=== PATIENT | female | born 1995 | race Caucasian/White ===

== ENCOUNTER 2018-09-14 13:27 | Emergency (ER) | payer OTHER ==
[~2018-09-14] VITALS: Ht 157.5 cm; Wt 68.5 kg
[2018-09-14] MEDS ORDERED: OBSTETRIX DHA1 EACH (13:46)
== END 2018-09-14 17:42 | disposition home or self-care (01) ==
LOC: ER 13:27
DX: O26.891 Other specified pregnancy related conditions, first trimester (principal); R10.2 Pelvic and perineal pain; Z34.01 Encounter for supervision of normal first pregnancy, first trimester

== ENCOUNTER 2018-10-06 13:51 | Emergency (ER) | payer OTHER ==
[~2018-10-06] VITALS: Ht 157.5 cm; Wt 61.2 kg
[~2018-10-06 13:51] MED LIST: OBSTETRIX DHA1 EACH
== END 2018-10-06 20:55 | disposition home or self-care (01) ==
LOC: ER 13:51
DX: O26.892 Other specified pregnancy related conditions, second trimester (principal); R10.2 Pelvic and perineal pain; R30.0 Dysuria; Z34.02 Encounter for supervision of normal first pregnancy, second trimester

== ENCOUNTER 2019-01-20 17:56 | Outpatient (CLI) | payer OTHER | END 2019-01-21 20:37 | disposition home or self-care (01) | LOC: OBS/DEL 17:56 | DX: O98.313 Other infections with a predominantly sexual mode of transmission complicating pregnancy, third trimester (principal); A59.8 Trichomoniasis of other sites; O23.43 Unspecified infection of urinary tract in pregnancy, third trimester; O35.8XX0 Maternal care for other (suspected) fetal abnormality and damage, not applicable or unspecified; O60.03 Preterm labor without delivery, third trimester; Z34.03 Encounter for supervision of normal first pregnancy, third trimester ==

== ENCOUNTER → 2019-01-20 | Emergency (ER) | payer OTHER | END | disposition left against medical advice (07) | LOC: ER 15:59 | DX: Z53.20 Procedure and treatment not carried out because of patient's decision for unspecified reasons (principal) ==

== ENCOUNTER 2019-02-13 13:51 | Outpatient (CLI) | payer OTHER | END 2019-02-14 15:24 | disposition home or self-care (01) | LOC: OBS/DEL 13:51 | DX: O60.03 Preterm labor without delivery, third trimester (principal) ==

== ENCOUNTER 2019-02-16 01:09 | Outpatient (CLI) | payer OTHER | END 2019-02-16 18:48 | disposition home or self-care (01) | LOC: OBS/DEL 01:09 | DX: O26.893 Other specified pregnancy related conditions, third trimester (principal); R10.2 Pelvic and perineal pain; O60.03 Preterm labor without delivery, third trimester ==

== ENCOUNTER 2019-02-18 14:55 | Outpatient (CLI) | payer OTHER | END 2019-02-18 19:54 | disposition home or self-care (01) | LOC: NST 14:55 | DX: O36.8133 Decreased fetal movements, third trimester, fetus 3 (principal); Z34.03 Encounter for supervision of normal first pregnancy, third trimester; Z3A.37 37 weeks gestation of pregnancy ==

== ENCOUNTER 2019-03-01 16:44 | Inpatient (IN) | payer OTHER ==
[~2019-03-01] VITALS: Ht 157.5 cm; Wt 2.7 kg
== END 2019-03-05 13:45 | disposition home or self-care (01) | DRG 788 ==
LOC: OBS/DEL 16:44 → OB/GYN 19:54 → LDR 19:54 → OBS/DEL 19:54 → LDR 03-02 15:22 → OB/GYN 03-02 16:02
PROVIDERS: ADMIT Obstetrics & Gynecology
PROC: 4A1HXCZ Monitoring of Products of Conception, Cardiac Rate, External Approach (ICD-10-PCS; 2019-03-01)
PROC: 10D00Z1 Extraction of Products of Conception, Low, Open Approach (ICD-10-PCS; principal; 2019-03-02 14:00)
DX: O82 Encounter for cesarean delivery without indication (principal); O14.14 Severe pre-eclampsia complicating childbirth; Z3A.38 38 weeks gestation of pregnancy; Z37.0 Single live birth

== ENCOUNTER 2021-04-05 22:36 | Emergency (ER) | payer OTHER ==
[~2021-04-05] VITALS: Ht 134.6 cm; Wt 68.9 kg
[2021-04-06] MEDS ORDERED: AZITHROMYCIN500 MG PO (03:28)
[2021-04-06] MEDS ORDERED: NAPROXEN375 MG PO (03:28)
[2021-04-07] MEDS ORDERED: AZITHROMYCIN500 MG PO (05:16)
[2021-04-07] MEDS ORDERED: NAPROXEN500 MG PO (05:16)
== END 2021-04-06 04:09 | disposition home or self-care (01) ==
LOC: ER 22:36
DX: J02.9 Acute pharyngitis, unspecified (principal); Z03.818 Encounter for observation for suspected exposure to other biological agents ruled out; J06.9 Acute upper respiratory infection, unspecified

== ENCOUNTER 2021-04-07 03:05 | Emergency (ER) | payer OTHER ==
[~2021-04-07] VITALS: Ht 152.4 cm; Wt 68.9 kg
[~2021-04-07 03:05] MED LIST changes: +AZITHROMYCIN500 MG PO; +NAPROXEN375 MG PO
[2021-04-07] MEDS ORDERED: AZITHROMYCIN500 MG PO (05:16)
[2021-04-07] MEDS ORDERED: NAPROXEN500 MG PO (05:16)
== END 2021-04-07 04:42 | disposition home or self-care (01) ==
LOC: ER 03:05
DX: J02.9 Acute pharyngitis, unspecified (principal)

== ENCOUNTER 2021-12-05 09:45 | Emergency (ER) | payer OTHER ==
[~2021-12-05] VITALS: Ht 157.5 cm; Wt 69.9 kg
[~2021-12-05 09:45] MED LIST changes: +NAPROXEN500 MG PO
== END 2021-12-05 11:03 | disposition home or self-care (01) ==
LOC: ER 09:45
DX: H10.10 Acute atopic conjunctivitis, unspecified eye (principal)

== ENCOUNTER 2022-09-12 23:29 | Emergency (ER) | payer OTHER ==
[~2022-09-12] VITALS: Ht 154.9 cm; Wt 64.4 kg
== END 2022-09-13 00:42 | disposition home or self-care (01) ==
LOC: ER 23:29
DX: S00.03XA Contusion of scalp, initial encounter (principal); W18.39XA Other fall on same level, initial encounter; Y93.89 Activity, other specified; Y92.096 Garden or yard of other non-institutional residence as the place of occurrence of the external cause; Y99.8 Other external cause status; G44.89 Other headache syndrome; M54.2 Cervicalgia